=== PATIENT | female | born 2000 | race Caucasian/White ===

== ENCOUNTER 2020-05-31 15:39 | Emergency (ER) | payer OTHER, SELFPAY ==
[2020-05-31 15:51] VITALS: BP 136/77; PULSE 91; RESP 18; TEMP 36.8; O2SAT 100; BMI 37.0
[2020-05-31] MEDS: tetanus-dipt-pertussis 0.5 mL SDV IM (16:18)
[2020-05-31] MEDS: lidocaine 1% INJ 20 mL 5 ML INTRADERMA (16:18)
[2020-05-31] MEDS: neomycin-poly-bacitracin oint 0.9 gm Pkt 1 APPLIC TOPICAL (16:44)
--- NOTE | 2020-05-31 16:47 | ED_ITS ---
HPI - Animal Bite General: Chief Complaint: Animal Bite Stated Complaint: LUE INJURY Time Seen by Provider: 05/31/20 16:05 History of Present Illness: HPI narrative: Patient with a dog bite to left forearm sustained for lacerations plus multiple scratches and abrasions to the arm. Dog was taken that that was put down [facility]. Dog was not showing evidence of rabies. Supervisor Forming Department says that the dog had been given shots regularly but was due for another rabies shot. MD complaint: animal bite Onset (ago): minute(s) Animal: dog Description of animal: household pet Mechanism: bite Location - Extremities: Left: forearm (Distal forearm with 4 large lacerations) Pain description: sharp Severity scale (1-10): 3 Context: playing with animal Associated symptoms: Reports no associated symptoms; Deny chills, fever(s) or headache(s) Review of Systems 2 Const: Denies: fever(s), chills or body aches Eyes: Denies: change in vision or blurry vision ENMT: Denies: throat pain or nasal congestion Card: Denies: chest pain or dyspnea on exertion Resp: Denies: dyspnea, productive cough or non-productive cough GI: Denies: abdominal pain, nausea or vomiting Musc: Denies: extremity pain Skin/Breast: Reports: other (Patient has lacerations to left forearm and abrasions and scratches); Denies: rash Neuro: Denies: headache(s) Psych: Denies: anxiety or depression Dom/Lymph: Denies: easy bruising PFS ED PFSH: Medical History (Updated 05/31/20 @ 16:46 by TD Lee) Chronic post-traumatic stress disorder Social History Current gender identity: Female Female Reproductive History: Date of last menstrual period: 05/07/20 Physical Exam Const: COMMON NORMALS: no acute distress, average body habitus and patient oriented x3 HENMT: COMMON NORMALS: normocephalic HEAD & SCALP: normal to inspection and normocephalic FACE & SINUS: normal facial exam Eye: COMMON NORMALS: conjunctivae normal GENERAL EYE: appearance normal, both eyes and all related structures CONJUNCTIVA: Yes conjunctivae normal Neck/C-Spine: COMMON NORMALS: no JVD Chest: COMMONS NORMALS: normal inspection of the chest Resp: COMMON NORMALS: normal respiratory effort and clear to auscultation bilaterally AUSCULTATION: clear to auscultation bilaterally Cardio: COMMON NORMALS: no JVD, regular rate and regular rhythm RATE: regular rate RHYTHM: regular rhythm GI: COMMON NORMALS: Normal to inspection, nondistended, normoactive bowel sounds present Extremity: COMMON NORMALS: normal to inspection and full ROM LEFT UPPER EXTREMITY: Yes lower arm (Laceration scratches bites) Left lower arm: Yes inspection (Full range of motion distal extremities), Yes palpation (Tender) and Yes neurovascular exam (Intact) Neuro: COMMON NORMALS: patient oriented x3 Procedures Laceration Laceration 1: Site: upper extremity Side (If applicable): left Size (cm): 2 Description: linear Depth: simple, single layer Local Anesthetic: lidocaine 1% Amount of anesthesia used (mL): 1 Pre-repair: wound explored, irrigated extensively and deep structures intact Skin layer closed with: nylon Size (cm): 4-0 Number of sutures: 4 Technique: simple, interrupted Laceration 2: Site: upper extremity Side (If applicable): left Size (cm): 4 Description: linear Depth: simple, single layer Local Anesthetic: lidocaine 1% Amount of anesthesia used (mL): 2 Pre-repair: wound explored, irrigated extensively and deep structures intact Skin layer closed with: nylon Size (cm): 4-0 Number of sutures: 7 Technique: simple, interrupted Laceration 3: Site: upper extremity Side (If applicable): left Size (cm): 7 Description: linear Depth: simple, single layer Local Anesthetic: lidocaine 1% Amount of anesthesia used (mL): 3 Pre-repair: wound explored, irrigated extensively and deep structures intact Skin layer closed with: nylon Size (cm): 4-0 Number of sutures: 9 Technique: simple, interrupted Laceration 4: Site: upper extremity Side (If applicable): left Size (cm): 3 Description: linear Depth: simple, single layer Local Anesthetic: lidocaine 1% Amount of anesthesia used (mL): 1 Pre-repair: wound explored, irrigated extensively and deep structures intact Skin layer closed with: nylon Size (cm): 4-0 Number of sutures: 4 Technique: simple, interrupted Course Vital Signs: Vital signs: Vital Signs Temperature 98.3 F 05/31/20 15:51 Pulse Rate 91 05/31/20 15:51 Respiratory Rate 18 05/31/20 15:51 Blood Pressure 136/77 05/31/20 15:51 Pulse Oximetry 100 05/31/20 15:51 MDM - Animal Bite MDM Narrative: Medical decision making narrative: Patient made decision at this time not to begin rabies vaccination. She basis on animals presentation boyfriend recommendation and that the dog sprain was sent off for evaluation and should get results by Wednesday of next week. Patient tolerated suturing fairly well. Wounds were all closed with a slight gap to allow for any drainage. Wounds were cleaned well dressing was applied patient instructed on what to follow-up in the way of any type of cellulitis or rabies symptoms. Discharge Plan Discharge Patient Disposition: Home Clinical Impression: Dog bite Qualifiers: Encounter type: initial encounter Qualified Code(s): W54.0XXA - Bitten by dog, initial encounter Laceration of multiple sites of arm Qualifiers: Encounter type: initial encounter Laterality: left Qualified Code(s): S41.112A - Laceration without foreign body of left upper arm, initial encounter Condition: Stable Prescriptions: New Keflex 500 mg capsule 500 mg PO TID 7 Days Qty: 21 RF: 0 tramadol 50 mg tablet 50 mg PO TID PRN (Reason: pain) Qty: 7 RF: 0 No Action fluoxetine [Prozac] 20 mg capsule 20 mg PO DAILY Qty: 30 RF: 5 Discharge Orders: Discharge ED (Routine); Ordered 05/31/20 Ordered By: Landry Monaco Discharge Diet: Usual diet Discharge Activity: Increase activity as tolerated Patient Instructions: Animal Bite (ED), Opioid Safety Activity Restrictions/Additional Instructions: Follow-up with medical provider as directed. Take medications as prescribed. Return to the ER or your medical provider if condition worsens. Please read and understand discharge instructions. If any questions ask please. Sutures out in 7 days. Make sure you follow-up with first next week and get test results on dog that was sent to [facility]. 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
--- NOTE | 2020-06-07 14:07 | PC.NURSE ---
06/07/20 @ 1302 ER to have sutures removed from a Dog bit. Wound/bites approximated, no bleeding or drainage. Removed all sutures , then steri-striped over wounds Pt tolerated well. If condition gets worse return to the ER. F/U with PCP as needed
== END 2020-05-31 17:05 | disposition home or self-care (01) ==
PROVIDERS: Emergency Provider Nurse Practitioner Family
DX: S51.852A Open bite of left forearm, initial encounter (principal); W54.0XXA Bitten by dog, initial encounter; Z23 Encounter for immunization
CPT/HCPCS: 12005; 90471; 90715; 96372; 99282